=== PATIENT | male | born 1990 | race Two or more races ===

== ENCOUNTER 2017-03-28 23:28 | Emergency (ER) | payer OTHER ==
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
== END 2017-03-29 03:30 | disposition home or self-care (01) ==
LOC: CED 23:28
DX: S39.012A Strain of muscle, fascia and tendon of lower back, initial encounter (principal); S16.1XXA Strain of muscle, fascia and tendon at neck level, initial encounter; S80.02XA Contusion of left knee, initial encounter; S60.222A Contusion of left hand, initial encounter; S60.221A Contusion of right hand, initial encounter; V49.50XA Passenger injured in collision with unspecified motor vehicles in traffic accident, initial encounter; Y92.410 Unspecified street and highway as the place of occurrence of the external cause
CPT/HCPCS: 72040; 72100; 73130; 73562; 96372; 99284; J1885